=== PATIENT | female | born 1950 ===

== ENCOUNTER → 2018-11-15 | Outpatient (CLI) | payer OTHER, BC ==
[~2018-11-15] VITALS: Ht 188 cm; Wt 73.9 kg
[~2018-11-15] MED LIST: AMLODIPINE BESY10 MG PO; ASPIR 8181 MG PO; CALCIUM 500 +1 EAC5 PO; COZAAR 25 MG TA25 M1 PO; CRESTOR20 MG PO; ESTRADIOL42.5 GM VAG; FLEXERIL PO; GLUCOPHAGE XR500 MG PO; LYRICA 50 MG50 MG PO; NAPROSYN500 MG PO; NEURONTIN600 MG PO; VOLTAREN GEL 1100 G2 TOP; ZANTAC 150MG T150 MG PO
[2018-11-15 12:39] VITALS: BP 159/82
--- NOTE | 2018-11-15 13:08 | NUR ---
Pain Clinic Assessment: 1. History of Osteoarthritis: Not Applicable History of Rheumatoid Arthritis: Not Applicable 2. Height: 6 ft. 2 in. 188.0 cm. Weight: 163.0 lb. oz. 73.936 kg. Patient's BMI: 20.9 3. Vital Signs: BP: 159/82 Pulse: 72 Resp: 18 Temp: 02 Sat: 100 ECG Mon: 4. Pain Intensity: 7 5. Fall Risk: Dizziness: N Needs help standing or walking: N Fallen in the last 3 months: N Fall risk comments: 6. Patient on Blood Thinner: None 7. History of Hypertension: Y 8. Opioid Therapy greater than 6 weeks: N Opiate Contract Signed: 9. Risk Assessment Tool Provided: LOW RISK 0/3 10. Functional Assessment Tool: 0/70 11. Recreational Drug Use: Never Drug Type: Tobacco Use: Never Smoker Tobacco Type: Amount or Packs/day: How Many Years: Alcohol Use: Yes Frequency: Monthly Quant: 1-2
--- NOTE | 2019-01-01 11:43 | HPC ---
[facility] [address] [place] [address] PAIN MANAGEMENT CONSULTATION Name: FREIDA GONZALEZ Room #: REG JOSIAH Garcia.#: [id number] Admission: 11/15/18 Attend Phys: Taylor Medina MD Discharge: Date of : 54 Report #: [id number] THIS REPORT FOR: //name// CC: FAM physician/PCP Janine Medina DATE OF SERVICE: 11/15/2018 CHIEF COMPLAINT: Pain in the sciatic nerve that is going down into the buttocks and hip. HISTORY: The patient is a 68-year-old female who has been referred to the pain clinic for evaluation regarding pain and discomfort in the lower portion of her back and radiating down into the left sciatic nerve. She has had pain that radiates down into her left foot and left leg. Pain has been problematic over the last 3 months. Describes it as an aching feeling with cramping and the intensity of 7/10. Notes that virtually everything exacerbates the pain and discomfort. She did have an episode in 2015. She has not had surgery. She has used gabapentin. Past history of scoliosis in the lower portion in the mid portion of her back. ALLERGIES: IV CONTRAST, PENICILLIN, CEPHALOSPORINS, SULFA, MORPHINE, AND ERYTHROMYCIN. CURRENT MEDICATIONS: Lyrica 50 mg t.i.d., Crestor 20 mg, ranitidine 150 mg b.i.d., Naprosyn 500 mg b.i.d., Glucophage-XR, Cozaar 25 mg 1-2 tablets daily, Neurontin 600 mg 1 p.o. t.i.d., estradiol 42.5 grams cream application vaginally, Voltaren gel 1%, 10 mg t.i.d., calcium D3 500 mcg, aspirin 81 mg, and amlodipine 10 mg. PAST MEDICAL HISTORY: Hypertension, arthritis. PAST SURGICAL HISTORY: Abdominal mesh surgery in 2011. 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 She is working at this juncture. REVIEW OF SYSTEMS: Generally good health, fever, night sweats, headaches, wears glasses, chronic frequent cough, frequent urination, numbness and tingling sensation in the lower extremity, diabetes, excessive thirst/urination. LABORATORY DATA: No new laboratory values are available at the time of our interview. PAIN CLINIC ASSESSMENT/PQRS: [address] [address] PAIN MANAGEMENT CONSULTATION Name: FREIDA GONZALEZ Room #: REG JOSIAH Fletcher#: [id number] Admission: 11/15/18 Attend Phys: Taylor Medina MD Discharge: Date of : 54 Report #: [id number] 1. Osteoarthritis. The patient is not being treated for osteoarthritis. The patient is not being treated for rheumatoid arthritis. 2. Height 6 feet 2 inches, weight 163 pounds, BMI is 28.9. 3. Vital signs: Blood pressure 159/82, pulse 72, respiratory rate 18, room air saturation 100%. 4. Pain intensity, 7/10. 5. Fall history: The patient has not fallen in the last 3 months. 6. Blood thinner. The patient is not on a blood thinning medication. 7. Hypertension. The patient is being treated for hypertension. 8. Opioids greater than 6 weeks. The patient is not on opioid regimen. 9. Risk assessment tool, low risk for opioids. 10. Functional assessment tool 0. 11. Recreational drugs. The patient denies use of recreational drugs. 12. Tobacco: The patient has never smoked. 13. Alcohol: The patient drinks 1-2 alcoholic beverages monthly. PHYSICAL EXAMINATION: GENERAL: The patient is a well-developed, well-nourished female. Appears her stated age. She is alert and oriented x 3. Her affect is appropriate. Speech is fluent. HEENT: Normocephalic, atraumatic. Extraocular eye muscles intact. Sclerae nonicteric. Mucous membranes are moist. NECK: Without adenopathy or JVD. EXTREMITIES: The patient has upper extremity muscle strength judged to be 5/5 for the major muscle groups in the upper extremity. The patient has scoliosis in the lower portion of her back with a S-shaped curve. The patient has pain and discomfort radiating down the lower portion of her back from the L5-S1 area on the left to the posterior portion of her leg with numbness and tingling down into her foot. Muscle strength in the lower extremities judged to be 5-/5 for the major muscle groups in the lower extremity. IMPRESSION: 1. Lumbar radiculopathy/spinal stenosis. Positive straight leg raise. 2. Hypertension. 3. Arthritis. RECOMMENDATIONS: We discussed treatment options with the patient. Risks and benefits of a lumbar epidural steroid injection were discussed. Possible complications of the procedure were reviewed. They include but are not limited to infection, worsening pain, no improvement in pain, headache, spinal trauma with weakness and the patient elects to proceed. PROCEDURE NOTE: The patient was taken to the procedure area. She was then assisted in getting on the examination table. Her back was sterilely prepped with a Betadine solution. A 0.25% bupivacaine was infiltrated at the L5-S1 area, after this area had been sterilely prepped with Betadine. A pillow had [address] [address] PAIN MANAGEMENT CONSULTATION Name: FREIDA GONZALEZ Room #: [facility]#: [id number] Admission: 11/15/18 Attend Phys: Taylor Medina MD Discharge: Date of : 54 Report #: [id number] been placed under the abdomen to bolster and improve positioning. A 17-gauge Tuohy with loss of resistance technique using fluoroscopy anterior, posterior viewing were implemented. A 0.25% bupivacaine was infiltrated at the L5-S1 area using a 25-gauge needle. A 17-gauge Tuohy at L5-S1 was then used to direct in a left paramedian approach to the epidural space. Aspiration was negative. A total of 80 mg Depo-Medrol, 40 mg triamcinolone, and 2 mL of 0.25% bupivacaine was injected. The patient tolerated the procedure well. There were no complications. She is rating her pain as a 7 at the time of discharge. She will follow up in the future as needed. We would like to thank you for letting us participate in her care. We hope she continues to improve. <ELECTRONICALLY SIGNED> By: Taylor Medina MD 01/01/19 [id number] Taylor Medina MD /[facility]
== END | disposition home or self-care (01) ==
LOC: PAIN 06:56
DX: M54.16 Radiculopathy, lumbar region (principal); M48.061 Spinal stenosis, lumbar region without neurogenic claudication; G89.29 Other chronic pain; I10 Essential (primary) hypertension; M19.90 Unspecified osteoarthritis, unspecified site; Z98.890 Other specified postprocedural states; Z88.0 Allergy status to penicillin; Z88.2 Allergy status to sulfonamides; Z91.041 Radiographic dye allergy status; Z88.8 Allergy status to other drugs, medicaments and biological substances; Z79.899 Other long term (current) drug therapy